=== PATIENT | female | born 1990 | race Caucasian/White ===

== ENCOUNTER 2019-07-22 21:51 | Emergency (ER) | payer SELFPAY ==
[~2019-07-22] VITALS: Ht 170.2 cm; Wt 86.0 kg
[2019-07-22] MEDS ORDERED: DEXAMETHASONE 10 MG/ML VIAL IM ONE (23:15)
[2019-07-22] MEDS ORDERED: ACETAMINOPHEN 325MG TABLET PO ONE (23:15)
[2019-07-22 23:18] VITALS: BP 126/70
== END 2019-07-23 01:09 | disposition home or self-care (01) ==
LOC: ER 21:51
DX: J03.90 Acute tonsillitis, unspecified (principal); Z98.890 Other specified postprocedural states
CPT/HCPCS: 96372; 99283; J1100

== ENCOUNTER 2024-10-05 15:27 | Emergency (ER) | payer BC ==
[~2024-10-05] VITALS: Ht 165.1 cm; Wt 72.5 kg
[2024-10-05 15:36] VITALS: O2SAT 98
[2024-10-05] MEDS: IBUPROFEN 600MG TABLET PO ONE (17:14)
[2024-10-05] MEDS: SUMATRIPTAN SUCCINATE 25MG TABLET PO ONE (17:14)
[2024-10-05 19:14] VITALS: BP 109/66; PULSE 70; RESP 18; TEMP 37.1; O2SAT 99
== END 2024-10-05 19:28 | disposition home or self-care (01) ==
LOC: ER 15:27
DX: G44.82 Headache associated with sexual activity (principal); Z98.890 Other specified postprocedural states
CPT/HCPCS: 81025; 99283